=== PATIENT | female | born 1990 | race Caucasian/White ===

== ENCOUNTER 2022-01-25 14:13 | Outpatient (CLI) | payer OTHER, SELFPAY | END 2022-01-25 14:14 | disposition home or self-care (01) | LOC: LKVREF 01-27 10:57 | PROVIDERS: PCP Family Medicine; Visit Provider Nurse Practitioner Family | DX: R30.0 Dysuria (principal); R39.9 Unspecified symptoms and signs involving the genitourinary system | CPT/HCPCS: 87086; 87491; 87591 ==

== ENCOUNTER 2022-02-17 14:13 | Outpatient (CLI) | payer OTHER, SELFPAY ==
--- NOTE | 2022-02-17 14:00 | CRLHL7_ITS ---
For Patients: As a result of the Century Cures Act, medical imaging exams and procedure reports are released immediately into your electronic medical record. You may view this report before your referring provider. If you have questions, please contact your health care provider. INDICATION: MENORRHAGIA COMPARISON: none TECHNIQUE: 2D vu scale and color Doppler images were acquired of the pelvis using a transabdominal and transvaginal approach. FINDINGS: Sonographic images demonstrate a normal size and smooth outer contour of the uterus. Uterus measures 7.3 cm in length by 3.5 cm in AP diameter by 4.3 cm in transverse dimension. The myometrium has a normal uniform echotexture. The endometrial lining measures 8 mm in composite thickness. The right ovary measures 3.8 x 1.9 x 2.1 cm in size and the left ovary measures 5.2 x 2.3 x 3.5 cm. The ovaries demonstrate normal arterial and venous blood flow on color Doppler analysis. There are no suspicious fluid collections within the cul-de-sac. IMPRESSION: Endometrial thickness 8 millimeters. Dictated by Rome Hurtado MD @ 02/17/2022 4:08:27 PM (Electronically Signed)
== END 2022-02-17 14:14 | disposition home or self-care (01) ==
LOC: US 14:14
PROVIDERS: PCP Obstetrics & Gynecology; Visit Provider Obstetrics & Gynecology
DX: N92.0 Excessive and frequent menstruation with regular cycle (principal); R93.89 Abnormal findings on diagnostic imaging of other specified body structures
CPT/HCPCS: 76830; 76856

== ENCOUNTER 2022-02-20 10:15 | Outpatient (CLI) | payer OTHER, SELFPAY | END 2022-02-20 10:16 | disposition home or self-care (01) | LOC: NFLDREF 10:17 | PROVIDERS: PCP Obstetrics & Gynecology; Visit Provider Obstetrics & Gynecology | DX: R10.2 Pelvic and perineal pain (principal) | CPT/HCPCS: 87086 ==

== ENCOUNTER 2022-03-30 07:39 | Day surgery (SDC) | payer OTHER, SELFPAY ==
[2022-03-29] MEDS: LACTATED RINGERS 1000 ML 1,000 ML 100 ML IV (08:10)
[2022-03-30] VITALS (26 sets, daily range): BP systolic 98–131; BP diastolic 62–87; PULSE 67–109; RESP 16–24; TEMP 36.2–37.1; O2SAT 96–100; BMI 28.5
[2022-03-30] MEDS: SODIUM CHLORIDE 0.9 % (FLUSH) 10 ML SYRINGE IVF (08:10)
[2022-03-30 08:18] LABS: Hemoglobin* 13.3 gm/dL (12.0-16.0)
[2022-03-30 08:22] LABS: Ur HCG Qualitative* Negative (Negative)
[2022-03-30 08:42] LABS: Creatinine* 0.8 mg/dL (0.5-1.5); Est. Creatinine Clearance* 104.67; Estimated Glomerular Filt Rate 102 ml/min
[2022-03-30] MEDS: LACTATED RINGERS 1000 ML 1,000 ML 100 ML IV (09:50)
[2022-03-30] MEDS: BUPIVACAINE 0.5 % 10 ML VIAL INJECTION (09:52)
--- NOTE | 2022-03-30 10:56 | W.PM.NB ---
Nerve Block Nerve Block Time Seen by Provider: 10:05 Date Seen: 03/30/22 Type of block requested by surgeon for post-operative analgesia: TAP Side: bilateral Time out performed: Yes Verification of patient name: Yes Verification of date of : Yes Site marking: site marked Name of person performing procedure: VEL Farrar Continuous monitoring Was continuous monitoring of O2 sat, B/P, groundwater monitoring technician, recorded every 15 minutes?: Yes Procedure Checklist: sterile prep, needles and gloves Ultrasound guided. Images saved: Yes Medications given in 5ml increments after negative aspiration: Marcaine (30 ml total) %: 0.25 mL: 15 Needle gauge: 20 and Exparel (10 total) mL: 5 Needle gauge: 20 Patient tolerated procedure well: Yes Block Charges Block Charge (with Pro Fee): TAP Bilateral Use of Ultrasound Machine for Block: Yes- US Guidance/pain block
--- NOTE | 2022-03-30 11:58 | PM.GSPRC ---
Operative Note Date of procedure: 03/30/22 Type of Procedure: Intraoperative evaluation and consultation Procedure Description: When I entered the operating room the patient was asleep in 3 ports were in the abdomen, which was insufflated. The umbilical port was examined and evidence of a loop of bowel adherent to the port itself. An additional 5 mm port was placed into the left upper quadrant. Soft jaw graspers were used to lift the small bowel on the distal proximal segment. Evidence of mesenteric injury, but no injury to the bowel itself. The 5 mm umbilical port was then deflated and gently removed. Again the portion of small bowel was carefully examined with a small injury on the mesenteric border of the bowel, but no bowel injury visualized. At this point in the procedure I left the operating room, please see Dr. Junior's operative report for the remainder of the procedure. Findings: Mesenteric small bowel injury during 5 mm port placement. No bowel injury identified. Anesthesia: GETA Surgeon: Renetta Bond MD Estimated blood loss (mL): 0 Condition: stable Disposition: no change
--- NOTE | 2022-03-30 12:38 | W.ANESCHARGE ---
Anesthesia Charges Start Date/Time Anesthesia Start Date: 03/30/22 Anesthesia Start Time: 09:06 Stop Date/Time Anesthesia Stop Date: 03/30/22 Anesthesia Stop Time: 12:30 Summary Emergency: No
[2022-03-30] MEDS: fentaNYL 100 MCG/2 ML inj 50 MCG IVP ×3 (12:41→12:59)
--- NOTE | 2022-03-30 12:56 | W.PM.GYNPROC ---
Procedure Note Date Seen: 03/30/22 Procedure Details: PREOPERATIVE DIAGNOSIS: Dysmenorrhea Chronic pelvic pain POSTOPERATIVE DIAGNOSIS: Dysmenorrhea Chronic pelvic pain TITLE OF OPERATION: 1. Total laparoscopic hysterectomy with bilateral salpingectomy 2. Cystoscopy with hydrodistention SURGEON: Rosa Isela Junior MD PRESIDENTIAL HELICOPTER CREW CHIEF: Mayelin Rao MD ANESTHESIA: General IV FLUIDS: 1800 mL crystalloid ESTIMATED BLOOD LOSS: 25 mL URINE OUTPUT: Not measured FINDINGS: 1. Upon pelvic exam under anesthesia, the cervix and vagina were normal in appearance. 2. Upon laparoscopy, survey of the upper abdomen revealed a normal appearance to the inferior edge of the liver and stomach. Bowels were obscuring the view of the gallbladder. Bowels were grossly normal appearance, as was the appendix. Survey of the pelvis revealed normal appearance to the uterus. Bilateral tubes were normal in appearance. Right ovary was absent The cul-de-sac and bladder reflection were normal in appearance. 3. Uterine weight 57 g. COMPLICATIONS: Perforation of mesentery directly adjacent to small bowel with introduction of initial trocar. PROCEDURE IN DETAIL: Patient was taken to the operating room with IV running. She received cefazolin in preoperative prophylaxis. She was positioned in dorsal lithotomy position with her legs fully supported in Yellofin stirrups. General anesthesia was administered. She was prepped and draped in the usual sterile fashion. Pelvic exam under anesthesia was performed for the above-noted findings. Speculum was inserted. Cervix visualized and grasped along its anterior lip with a single-tooth tenaculum. Cervix was dilated with Hegar dilators to accommodate the VCare uterine manipulator. A large-sized colpotomizer cup was selected. The tip of the uterine manipulator was inserted through the cervix into the uterine cavity and the balloon was inflated. The speculum was removed. The colpotomy cup was advanced, surrounding the cervix, and the proximal occluder was moved up along the shaft of the VCare and fixed in place. Morales catheter was placed. Patient's legs were then placed in neutral position. Attention was turned to patient's abdomen. Infraumbilical area was infiltrated with a small amount of Marcaine. A 5 mm infraumbilical incision was made with a scalpel and carried down to the underlying layer of fascia with the hemostat. 5 mm camera was placed within the 5 mm Fios Kii trocar, and advanced under direct visualization through the anterior abdominal wall into the peritoneal cavity, while tenting up the anterior abdominal wall. The trocar was removed. The balloon was inflated, holding the port in place. Pneumoperitoneum was achieved. Survey of the abdomen and pelvis revealed the above-noted findings. Three additional port sites were created. The first was in the patient's left lower quadrant, just superomedial to the left ASIS. The second was a hand's breadth superior to and slightly medial to the first. The third was in the patient's right lower quadrant, just superomedial to the right ASIS. An 11 mm incision was made in the left lower quadrant, and a 5 mm incision was made at the other 2 sites, after assuring that large vessels were out of harm's way. A 10 mm Fios Kii port was inserted at the left lower quadrant site, and a 5 mm Fios Kii port at each of the other 2 sites, under direct visualization and without complication. The balloon on each of these ports was inflated, holding each in place. Using the left lower quadrant port, the umbilical port was visualized and the port was found to pass through small bowel mesentery, directly adjacent to the small bowel itself. Dr. Gomez: Was called to the operating room for intraoperative consult. The balloon on the umbilical port site was deflated. With her assistance, the port was removed from mesentery. Evaluation revealed no obvious perforation of the small bowel at that site. The balloon tip of the umbilical port site was again inflated. Attention was first turned to the left fallopian tube, which was divided from the mesosalpinx, using the Thunderbeat bipolar cautery device, proceeding laterally to medially, and the tube was amputated at the left uterine cornua. This was removed through the port site and sent to pathology. This procedure was repeated on the patient's right side, and the right fallopian tube was also amputated at the cornua and removed from the patient's abdomen. This was also sent to pathology for further analysis. The left round ligament was cauterized and transected with the Thunderbeat device. The utero-ovarian ligament was cauterized and transected, and the remnants of the right broad ligament were cauterized and transected between these two structures. The bladder flap was created on the patient's left side, moving laterally to medially. The left uterine artery was cauterized and transected with the Thunderbeat device. Using the colpotomizer cup as a guide, the peritoneum and underlying stroma was dissected off the anticipated site of colpotomy over the posterior vaginal fornix. Attention was then turned to the right side of the uterus, where the right round ligament was cauterized and transected with the Thunderbeat device. The right utero-ovarian ligament was cauterized and transected, and the remnants of the right round ligament were cauterized and transected between these two structures. The bladder flap was created on the patient's right side, and dissection was carried laterally to medially, meeting the dissection where it had left off from the patient's right side. The right uterine artery was cauterized and transected with the Thunderbeat device. The bladder reflection was moved well below the colpotomizer cup anteriorly. The vaginal fornix was then entered anteriorly with the Thunderbeat device, using the colpotomizer cup as a guide. First the Thunderbeat device, then monopolar cautery paddle was moved along the circumference of the colpotomizer cup, until the uterus and cervix were freed from their attachments to the pelvis. The uterus was pulled into the patient's vagina, maintaining the pneumoperitoneum. The vaginal cuff was closed with series of [id number] sutures of 0 Vicryl, which were placed and tied laparoscopically. Ports were left in place but all instruments were removed and pneumoperitoneum was released. Patient's legs were placed back in lithotomy position. The uterus was removed from the vagina and was sent to pathology for further analysis. Speculum exam was performed, showing an intact cuff with no obvious active bleeding. The Morales catheter was removed from the bladder, and the cystoscope was assembled with saline inflow, outflow, and light cord in place. The patient was given IV sodium fluorescein prior to the cystoscopy. Cystoscope was advanced through the urethra into the bladder, and survey of the mucosa revealed a trabeculated appearance at some sites. The bladder dome was intact. Bilateral ureteral jets were noted. Cystoscope was removed and Morales catheter replaced. Patient's legs were again placed in neutral position. Insufflator was reattached to the port and pneumoperitoneum again achieved. Survey of the pelvis revealed hemostasis. The 11 mm Fios Kii port in the left lower quadrant was removed after balloon on the port was deflated. The Rashad-Mag laparoscopic closure device was inserted through this port. With the help of this device, the fascia was closed with a single suture of 0-Vicryl. The balloons of all remaining port sites were deflated, and all ports were removed after pneumoperitoneum was released. The skin of each port site was closed in a subcuticular fashion with 4 0 Monocryl. Surgical glue was applied above this. The cystoscope was reintroduced. A bag of saline was hung approximately 70 cm above the patient's pubic bone. The bladder was filled to capacity, which seem to be less than 600 mL. There was abundant leakage around the cystoscope when attempting to fill the bladder with more saline this. Saline was left within the bladder for 8 minutes, then catheter was reinserted. Patient tolerated procedure well and was taken to recovery area in stable condition.
[2022-03-30] MEDS: KETOROLAC 30 MG/ML inj IVP ×2 (13:10→18:18)
--- NOTE | 2022-03-30 13:27 | SUR.PHASEI ---
Dr. Junior into see pt in PACU
[2022-03-30] MEDS: MORPHINE 2 MG/ML inj IVP ×3 (14:00→20:08)
[2022-03-30] MEDS: LACTATED RINGERS 1000 ML 1,000 ML 125 ML IV ×2 (14:03→20:32)
[2022-03-30] MEDS: ACETAMINOPHEN 325 MG TABLET 650 MG PO ×3 (14:58→23:19)
[2022-03-30] MEDS: OXYCODONE 5 MG TABLET PO ×3 (14:59→23:20)
[2022-03-30] MEDS: PROMETHAZINE 25 MG/ML INJ 12.5 MG IV (15:11)
--- NOTE | 2022-03-30 15:46 | PC.NURSE ---
End of shift note: Patient returned to room 261 at 1340 from PACU. Having 10/[address] Junior who gave verbal order for Morphine 2mg IV Q1H PRN. One dose administered at 1400 and patient went from a 10/10 to a 6/10 and was much more calm. Vital signs have been within normal limits. Sating 99% on Room air. 4 lap incisions. Right lower lap site having some minimal bloody drainage. Encouraged ice to abdomen but patient insisted on heat to abdomen for cramping. No blood noted per vagina. Indwelling catheter intact. 900ml was emptied in PACU. 175ml emptied this shift. Patient tolerated some crackers and applesauce and oxy and tylenol were given to get a head of the pain. Patient then developed nausea after this. Promethazine was given for this. PIV was patent in right hand. LR at 125/hr. SCDs in place. Lung sounds clear. Hypoactive bowel sounds. at bedside. Plans to return home with when medically ready.
[2022-03-30] MEDS: BUSPIRONE 10 MG TABLET 30 MG PO (20:31)
[2022-03-30] MEDS: cloNIDine HCL 0.1 MG TABLET PO (20:31)
--- NOTE | 2022-03-30 22:42 | PC.NURSE ---
End of Shift: Patient pleasant and cooperative. Afebrile. Rating pain 7/10 and too soon for oxycodone to be given, PRN Morphine given and pain decreased to 5/10. PRN Oxycodone given when available and patient stated no change in pain, updated MD and dose increased. Patient tolerating regular diet with no nausea. Up to bathroom and chair with SBA. No bleeding noted on robyn-pad. 4 lap sites C/D/I and glued. Alternating aqua-k pad and ice for comfort. Morales patent.
[2022-03-31] MEDS: KETOROLAC 30 MG/ML inj IVP (00:13)
[2022-03-31] MEDS: PROMETHAZINE 25 MG/ML INJ 12.5 MG IV (01:58)
[2022-03-31 03:00] VITALS: BP 94/62; PULSE 83; RESP 16; TEMP 37; O2SAT 100
[2022-03-31 04:24] LABS: Hemoglobin* 11.5 gm/dL (12.0-16.0)
[2022-03-31 04:40] LABS: Creatinine* 0.7 mg/dL (0.5-1.5); Est. Creatinine Clearance* 119.62; Estimated Glomerular Filt Rate 120 ml/min
[2022-03-31] MEDS: OXYCODONE 5 MG TABLET PO ×3 (04:52→12:54)
--- NOTE | 2022-03-31 04:54 | PC.NURSE ---
Dr Charles notified of pt c/o feeling like she had to urinate. Bladder scanned for 391. Bladder back filled with 120cc normal saline. Morales pulled and pt voided 800cc. Also may saline lock IV
[2022-03-31 07:00] VITALS: BP 104/74; PULSE 61; RESP 16; RESP 18; TEMP 36.9; O2SAT 100
--- NOTE | 2022-03-31 07:30 | PC.NURSE ---
END OF SHIFT NOTE: PT PLEASANT AND COOPERATIVE WITH CARES. VSS ON RA; AFEBRILE. PT RATES ABD PAIN 5-6/10 WITH RELIEF FROM THE USE OF PAIN RELIEVER (SEE eMAR); ALTERNATING ICE AND AQUA-K PAD FOR ABDOMINAL DISCOMFORT. PT ROCHA DC'D AND PT VOIDING APPROPRIATELY. LAP SITES X4 CDI. HYPOACTIVE BS; PT DENIES FLATUS OR BM.
[2022-03-31] MEDS: buPROPion XL 150 MG TABLET 450 MG PO (08:32)
[2022-03-31] MEDS: BUSPIRONE 10 MG TABLET 30 MG PO (08:33)
[2022-03-31 11:00] VITALS: BP 109/67; PULSE 82; RESP 18; TEMP 37.8; O2SAT 100
[2022-03-31] MEDS: ACETAMINOPHEN 325 MG TABLET 650 MG PO (11:10)
--- NOTE | 2022-03-31 11:17 | PM.GYNDS1 ---
DS: Providers Provider Time Seen by Provider: 18 Date Seen: 03/31/22 Date of admission: 03/30/2022 Primary care physician: HANK Brewer Admitting Clinician: Rosa Isela Junior MD Consults: Intraoperative consultation to General Surgery: Dr. Renetta Bond Attending Physician on discharge: Rosa Isela Junior MD DS: Diagnosis Discharge Diagnosis (1) Dysmenorrhea: Status: Acute (2) S/P laparoscopic hysterectomy: Status: Acute Problem details: TLH/bilateral hysterectomy by Dr. 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 Her surgery was uncomplicated. Her postoperative course was also uncomplicated. By postoperative day 1, she was tolerating a regular diet, ambulating without difficulty, passing flatus and pain was well controlled with oral pain medications. She would like to be discharged home today. Labs: Preoperative hemoglobin 13.3, postoperative hemoglobin 11.5. Objective: General: Alert and oriented x3. Pleasant, woman in no acute distress. Vital signs: See EMR. Heart: Regular rate and rhythm without gallop, rub or murmur. Chest: Clear to auscultation bilaterally. Abdomen: Soft, nontender, nondistended with normal bowel sounds throughout. No CVA or flank tenderness. Incision(s): Clean, dry and intact w/ sutures and skin adhesive. Pelvic: Minimal vaginal bleeding, remainder of pelvic exam deferred. Extremities: No pain, edema, cyanosis or clubbing. Assessment: 31-year-old postoperative day 1 from a TLH/Bilateral salpingectomy and diagnostic cystoscopy, doing well. Plan: 1. Discharge home today. 2. Activity restrictions reviewed with the patient. 3. Return to clinic to see Dr. Rosa Isela Junior for a postoperative visit in 2-3 weeks. Time Spent with Patient Time attestation: Total time spent providing and/or coordinating discharge services: Time spent: Less than 30 minutes OVERHEAD CRANE INSPECTOR - Exam Physical Exam: Vital signs: Temp Pulse Resp BP Pulse Ox O2 Del Method 98.6 F 83 16 94/62 100 03/31/22 03:00 03/31/22 03:00 03/31/22 03:00 03/31/22 03:00 03/31/22 03:00 03/31/22 03:00 Narrative: See exam above. OVERHEAD CRANE INSPECTOR - DS: Data Data Completed and Pending Labs on day of discharge: Labs from last 24 hours 03/31/22 03/31/22 03/29/22 04:18 04:18 Unknown Hgb 11.5 L Creatinine 0.7 Estimated Creat Clear 119.62 Estimated GFR 120 HCG, Qual Cancelled Procedures Procedures: Procedures Operation Date: 03/30/22 09:05 Actual Procedure Side Surgeon p Total Laparoscopic Hysterectomy, Bilateral Salpingectomy, Cystoscopy w/Hydrodistention Rosa Isela Junior MD Complications: none Discharge Plan Discharge Disposition: Home, Self-Care Discharging Surgeon: Cat Goodson Follow-Up Appointment: 2-[address] Rosa Isela Junior Prescriptions: New ibuprofen 600 mg tablet 600 mg PO QID PRNQty: 30 0RF docusate sodium 100 mg capsule 100 mg PO BID PRNQty: 100 0RF oxycodone 5 mg Tablet 5 mg PO 3XD PRN (Reason: Pain) 7 Days Qty: 21 0RF Continued dextroamphetamine-amphetamine [Adderall] 20 mg tablet 20 mg PO BID Rx Instructions: administer doses at least 4-6 hours apart clonidine HCl 0.1 mg tablet 0.1 mg PO HS buspirone 30 mg tablet 30 mg PO BID albuterol sulfate 90 mcg/actuation HFA aerosol inhaler 1 - 2 inh INHALATION Q4H PRN bupropion HCl 150 mg tablet extended release 24 hr 150 mg PO DAILY Rx Instructions: total dose = 450 mg bupropion HCl 300 mg tablet extended release 24 hr 300 mg PO DAILY Rx Instructions: total dose = 450mg Activity Detail: See additional instructions below. Discharge Diet: Regular Patient Instructions: Hysterectomy (DC), Surgical Site Infections (DC) Additional Instructions: Discharge instructions were reviewed with the patient including signs and symptoms of infection and medications to use for pain.? Medication dosing: For the first 1-2 days at home: take 2 ES Tylenol w/ 1 oxycodone, 3hrs later take 600mg ibuprofen, 3hrs later take Tylenol + oxycodone, etc. Continue alternating medications as needed. Stool softener: Docusate Sodium 1 capsule PO 2x/day as needed for constipation. OK to use GasX and Miralax in addition to above stool softener. OK to use a laxative: sennakot/Ex-Lax if not bowel movement in 3 days in addition to stool softeners Walking and walking up and down stairs is safe upon arrival at home. No limitations on showering. No soaking in a tub or pool: 2 weeks. No lifting greater than 20 pounds: 4 weeks. No driving well taking narcotic pain medication: Approximately 1 week. No high impact or core exercises: 4 weeks. Nothing per vagina: 6 weeks. Off work or school: 4 weeks. ? Follow up with your surgeon in 2 weeks for incision check and 6 weeks for a postoperative visit or sooner as needed. Forms: Work/Release Restrictions Follow-up: Rosa Isela Junior MD [Staff Physician] - Agueda Lang PA [Primary Care Provider] - Discharge Orders: Discharge Order (Routine); Ordered 03/31/22 Ordered By: Cat Goodson
[2022-03-31 13:00] VITALS: BP 109/67; PULSE 83; RESP 18; TEMP 37.8
--- NOTE | 2022-03-31 14:16 | PC.NURSE ---
Nursing Care Hours: [id number] Pt this shift calm and cooperative with cares. Kept SCD on unless up to the bathroom. SB assist to bathroom for first void on shift, pt kept bent over at hips to avoid pain when fully standing. Used wall and ledges for support. Personnel Records Clerk encouraged pt to slowly stand straight and stretch the muscles but stop if there is severe or sharp pain. Encouraged to ambulate in halls. PT brought in a walker for pt support. Ambulated well and kept a tall stance. Per pt report, walking helped with gas pains. Incisions open to air, no drainage, no swelling or redness. Pt tolerated breakfast, though no BM yet. IV dc'd in morning d/t R hand puffy and tender when flushed. Discharge instructions given verbally and via handout. All questions and concerns answered. pt wheeled out to car with and child.
== END 2022-03-31 13:00 | disposition home or self-care (01) ==
LOC: OR 07:40 → MEDSURG 12:08
PROVIDERS: PCP Physician Assistant; Visit Provider Obstetrics & Gynecology
PROC: 0UT94ZZ Resection of Uterus, Percutaneous Endoscopic Approach (ICD-10-PCS; CPT 58571; principal; 2022-03-30 08:45)
DX: N94.6 Dysmenorrhea, unspecified (principal); G89.29 Other chronic pain; R10.2 Pelvic and perineal pain; K91.72 Accidental puncture and laceration of a digestive system organ or structure during other procedure
CPT/HCPCS: 58571; 00840; 36415; 51798; 64488; 76942; 81025; 82565; 84703; 85018; 86850; 86900; 86901; 88307; A9270; C9290; J0131; J0330; J1100; J1885; J2250; J2270; J2405; J2550; J2704; J3010; J3475; J3490; J7120; S0020

== ENCOUNTER 2022-05-26 10:20 | Outpatient (CLI) | payer OTHER, SELFPAY | END 2022-05-26 10:21 | disposition home or self-care (01) | LOC: NFLDREF 10:22 | PROVIDERS: PCP Physician Assistant; Visit Provider Obstetrics & Gynecology | DX: R30.0 Dysuria (principal) | CPT/HCPCS: 87086 ==

== ENCOUNTER 2022-07-06 10:00 | Outpatient (RCR) | payer OTHER, SELFPAY | END 2022-11-07 14:43 | disposition home or self-care (01) | PROVIDERS: PCP Physician Assistant; Visit Provider Obstetrics & Gynecology | DX: R10.2 Pelvic and perineal pain (principal); N94.10 Unspecified dyspareunia; M62.838 Other muscle spasm; Z51.89 Encounter for other specified aftercare | CPT/HCPCS: 97140; 97162; 97535 ==

== ENCOUNTER 2023-01-04 15:32 | Outpatient (CLI) | payer OTHER, SELFPAY | END 2023-01-04 15:33 | disposition home or self-care (01) | LOC: NFLDREF 01-05 05:31 | PROVIDERS: PCP Physician Assistant; Referring Provider Physician Assistant; Visit Provider Physician Assistant | DX: N89.8 Other specified noninflammatory disorders of vagina (principal); R10.2 Pelvic and perineal pain | CPT/HCPCS: 87086 ==

== ENCOUNTER 2023-01-05 14:55 | Outpatient (CLI) | payer OTHER, SELFPAY ==
--- NOTE | 2023-01-05 15:00 | CRLHL7_ITS ---
For Patients: As a result of the Century Cures Act, medical imaging exams and procedure reports are released immediately into your electronic medical record. You may view this report before your referring provider. If you have questions, please contact your health care provider. CLINICAL HISTORY: Pelvic and perineal pain Comparison 02/17/2022 TECHNIQUE: 2D vu scale ultrasound. In addition color Doppler and spectral Doppler analysis was performed of the pelvis using a transvaginal approach. FINDINGS: The uterus is absent. One ovary measures 5.0 x 2.1 x 2.7 cm. The other ovary is not visualized. The ovary demonstrate normal arterial and venous blood flow on color Doppler and spectral Doppler analysis. There are no suspicious fluid collections within the cul-de-sac. IMPRESSION: No evidence of adnexal mass, excess pelvic free fluid or torsion regarding the visualized ovary. Dictated by Rome Hurtado MD @ 01/05/2023 4:36:06 PM (Electronically Signed)
== END 2023-01-05 14:56 | disposition home or self-care (01) ==
LOC: US 14:55
PROVIDERS: PCP Physician Assistant; Visit Provider Physician Assistant
DX: R10.2 Pelvic and perineal pain (principal); F32.81 Premenstrual dysphoric disorder; N94.2 Vaginismus; N89.8 Other specified noninflammatory disorders of vagina
CPT/HCPCS: 76830; 76856; 93976